=== PATIENT | male | born 1970 ===

== ENCOUNTER → 2016-10-27 | Outpatient (REF) | payer BC ==
[2016-10-27 10:59] LABS: FREE T4 0.85 NG/DL (0.76-1.46); TOTAL PROTEIN 7.1 GM/DL (6.4-8.2)
[2016-10-27 11:07] LABS: FOLATE > 24.0 NG/ML; VITAMIN B12 LEVEL 1311 PG/ML
[2016-10-28 12:01] LABS: ALBUMIN 4.22 GM/DL (3.29-5.55); ALBUMIN % 59.5 % (55.8-66.1); GAMMA GLOBULIN % 18.6 % (11.1-18.8)
== END ==
LOC: M LABNEURO 10:07
PROVIDERS: ATTEND Psychiatry & Neurology Neurology
DX: M79.672 Pain in left foot (principal); M79.671 Pain in right foot; G62.9 Polyneuropathy, unspecified